=== PATIENT | male | born 1985 | race Caucasian/White ===

== ENCOUNTER 2016-12-06 10:20 | Outpatient (CLI) | payer BC ==
--- NOTE | 2016-12-06 11:35 | DIAGNOSTIC IMAGING REPORT ---
PROCEDURE: CT IVP CLINICAL INDICATION: Painless hematuria, initial encounter TECHNIQUE: Preliminary AP and lateral content editor views of the abdomen were obtained. Subsequently, noncontrast axial images were obtained of the entire abdomen and pelvis. 125 ml of Isovue 300 was injected intravenously, and axial images were obtained of the abdomen and pelvis with biphasic imaging of the liver and kidneys, followed by sagittal and coronal reformations. Postinjection AP content editor view of the abdomen was also obtained. COMPARISON: None. FINDINGS: NONCONTRAST ABDOMEN: No renal or ureteral calcifications. CONTRAST ABDOMEN: Normal renal enhancement and excretion without evidence of a mass or inflammatory process. No hydronephrosis. Normal ureters. Lung base are clear. Heart size is normal. Liver, gallbladder, pancreas, spleen and adrenal glands are normal. Normal abdominal aorta. Nonspecific bowel gas pattern. NONCONTRAST PELVIS: No bladder calcifications. CONTRAST PELVIS: Normal bladder and prostate. Normal appendix. No pelvic mass, inflammatory changes or free fluid. Bones are unremarkable. IMPRESSION: 1. Normal study All CT scans at this facility use dose modulation, iterative reconstruction, and/or weight-based dosing when appropriate to reduce radiation dose to as low as reasonably achievable.
--- NOTE | 2016-12-06 11:35 | DIAGNOSTIC IMAGING REPORT ---
PROCEDURE: CT IVP CLINICAL INDICATION: Painless hematuria, initial encounter TECHNIQUE: Preliminary AP and lateral diamond die driller views of the abdomen were obtained. Subsequently, noncontrast axial images were obtained of the entire abdomen and pelvis. 125 ml of Isovue 300 was injected intravenously, and axial images were obtained of the abdomen and pelvis with biphasic imaging of the liver and kidneys, followed by sagittal and coronal reformations. Postinjection AP diamond die driller view of the abdomen was also obtained. COMPARISON: None. FINDINGS: NONCONTRAST ABDOMEN: No renal or ureteral calcifications. CONTRAST ABDOMEN: Normal renal enhancement and excretion without evidence of a mass or inflammatory process. No hydronephrosis. Normal ureters. Lung base are clear. Heart size is normal. Liver, gallbladder, pancreas, spleen and adrenal glands are normal. Normal abdominal aorta. Nonspecific bowel gas pattern. NONCONTRAST PELVIS: No bladder calcifications. CONTRAST PELVIS: Normal bladder and prostate. Normal appendix. No pelvic mass, inflammatory changes or free fluid. Bones are unremarkable. IMPRESSION: 1. Normal study All CT scans at this facility use dose modulation, iterative reconstruction, and/or weight-based dosing when appropriate to reduce radiation dose to as low as reasonably achievable.
== END 2016-12-06 23:00 ==
LOC: CT SRH 10:20
DX: R31.9 Hematuria, unspecified (principal)